=== PATIENT | female | born 1990 | race African-American/Black ===

== ENCOUNTER 2017-04-17 23:24 | Emergency (ER) | payer OTHER ==
[~2017-04-17] VITALS: Ht 170.2 cm; Wt 81.6 kg
[~2017-04-17 23:24] MED LIST: CITA40TA12; HYDR25TA
[2017-04-18 00:45] VITALS: BP 119/56
[2017-04-18] MEDS ORDERED: MECLIZINE HCL 12.5 MG TABLET. PO ONE (00:45)
[2017-04-18] MEDS ORDERED: MECL12.52 PO (00:58)
--- NOTE | 2017-04-18 00:58 | PHYS DOC ---
Past Medical History Past Medical History: Anxiety, Migraines Past Surgical History: No Surgical History Alcohol Use: Occasionally Drug Use: None Adult General Chief Complaint Chief Complaint: DIZZY/LIGHT HEADED HPI HPI Patient is a 27 year old female who presents with vertigo. The patient reports spinning sensation with positional changes particularly when lying flat and looking to her right side. She states symptoms began this morning. No precipitating trauma, no recent chiropractic manipulation. She denies headache, nausea or vomiting, fevers or chills, vision changes, extremity numbness or weakness. No previous history of similar symptoms. Review of Systems Review of Systems Constitutional: Denies fever or chills Eyes: Denies change in visual acuity HENT: Denies nasal congestion or sore throat Respiratory: Denies cough or shortness of breath Cardiovascular: Denies chest pain or edema GI: Denies abdominal pain, nausea, vomiting Musculoskeletal: Denies back pain or joint pain Integument: Denies rash or skin lesions Neurologic: Reports vertigo. Denies headache, focal weakness or sensory changes Current Medications Current Medications Current Medications Medications (Trade) Dose Ordered Sig/Lucinda Start Time Stop Time Status Last Admin Dose Admin Meclizine HCl (Antivert) 25 mg 1X ONCE 04/18/17 00:45 04/18/17 00:46 DC 04/18/17 00:57 25 MG Allergies Allergies Allergies Coded Allergies Type Severity Reaction Last Updated Verified No Known Drug Allergies 04/23/15 No Physical Exam Physical Exam Constitutional: Well developed, well nourished, no acute distress, non-toxic appearance. HENT: Normocephalic, atraumatic, bilateral external ears normal, oropharynx moist, nose normal. TMs clear bilaterally, no bulging or erythema Eyes: PERRLA, EOMI, no nystagmus, conjunctiva normal, no discharge. Neck: supple, no stridor. Cardiovascular: RRR, no murmurs, no edema. Lungs & Thorax: LCTAB, no wheezing, no respiratory distress. Abdomen: soft, nontender, nondistended. Skin: Warm, dry, no erythema, no rash. Back: No tenderness. Extremities: No tenderness, no edema. Neurologic: Alert and oriented X 3, cranial nerves II through XII grossly intact , symmetric strength and sensation to upper and lower extremities, no focal deficits noted. Psychologic: Affect normal, judgement normal, mood normal. Current Patient Data Vital Signs Vital Signs Date Time Temp Pulse Resp B/P (MAP) Pulse Ox O2 Delivery O2 Flow Rate FiO2 04/18/17 01:00 84 98 Room Air 04/18/17 00:45 119/56 (77) 04/17/17 23:56 98.4 17 98.4 Lab Values Laboratory Tests Test 04/17/17 23:21 POC Urine HCG, Qualitative Hcg negative (Negative) EKG EKG [] Radiology/Procedures Radiology/Procedures [] Course & Med Decision Making Course & Med Decision Making Pertinent Labs and Imaging studies reviewed. (See chart for details) Patient presented with vertigo. Symptoms consistent with benign positional vertigo. Gave meclizine in the emergency department as well as prescription to take his home. Recommend hydration. Follow up with primary care physician if symptoms persist or worsen in one week. Return to the emergency department for severe sudden onset headache, focal neurologic deficit, uncontrolled vomiting, any otherwise worsening condition. Discharged home in stable condition. [] Dragon Disclaimer Dragon Disclaimer This electronic medical record was generated, in whole or in part, using a voice recognition dictation system. Departure Departure Impression: Primary Impression: Vertigo Disposition: HOME, SELF-CARE Condition: STABLE Referrals: NO PCP (PCP) AUDREY SUTTON MD Patient Instructions: Vertigo, [id number] Additional Instructions: You were seen in the emergency department today for vertigo. Please drink fluids and take meclizine as prescribed. Follow-up with a primary care doctor such as Dr. Sutton in one week if not improving. Return to the emergency department for severe headache, numbness or weakness in arms or legs, uncontrolled vomiting, any otherwise worsening condition. Scripts Meclizine Hcl (MECLIZINE HCL) 12.5 Mg Tablet 1 TAB PO BID Y for vertigo, #20 TAB Prov: PRECIOUS LINDA MD 04/18/17 PRECIOUS LINDA MD Apr 18, 2017 00:58
== END 2017-04-18 01:04 | disposition home or self-care (01) ==
LOC: ER 23:24
DX: R42 Dizziness and giddiness (principal); G43.909 Migraine, unspecified, not intractable, without status migrainosus; F41.9 Anxiety disorder, unspecified
CPT/HCPCS: 81025; 99283; J8597